=== PATIENT | male | born 1970 | race Caucasian/White ===

== ENCOUNTER 2021-04-25 07:40 | Emergency (ER) | payer SELFPAY ==
--- NOTE | 2021-04-25 08:31 | EDM.PDOC ---
ED HPI GENERAL MEDICAL PROBLEM - General Chief Complaint: General Stated Complaint: FREQUENT URINATION/MUSCLE CRAMPS Time Seen by Provider: 04/25/21 08:17 Source of Information: Reports: Patient, RN Notes Reviewed History Limitations: Reports: No Limitations - History of Present Illness INITIAL COMMENTS - FREE TEXT/NARRATIVE: Presents with increasing urination and frequency. He is a truck body repairer over the road and over the last 2 weeks he is lost about almost 30 pounds. He started to have some vision changes blurry vision. He has some increasing thirst although he drinks a lot of water anyway. No burning pain or blood in the urine. No testicle pain no groin pain no abdominal pain. Appetite seems to be stable no nausea vomiting or diarrhea bowels are normal. Denies fevers chills or sweats occasional coughing does smoke cigarettes no sore throat no loss of taste or smell no chest pain shortness of breath or breathing difficulty no abdominal pain associated with it he might have occasional cramps though in his lower abdomen. He does note cramps in his muscles of the legs bilaterally and some in his muscles in general. He does describes self as fairly healthy his last DOT physical the only thing that showed up was a trace of protein does not wear glasses or contacts. Onset: Gradual Duration: Week(s): Improves with: Reports: None - Related Data Allergies Allergy/AdvReac Type Severity Reaction Status Date / Time No Known Allergies Allergy Verified 04/25/21 11:15 Home Meds: Home Meds Lancets/Blood Glucose Strips [Fora [id number] Strp-Lnct] 1 each BIDAC #1 combo..pkg 04/25/21 [Rx] metFORMIN HCl [Metformin HCl] 500 mg PO BID #60 solution 04/25/21 [Rx] Past Medical History - Past Health History Medical/Surgical History: Denies Medical/Surgical History Social & Family History - Tobacco Use Tobacco Use Status *Q: Never Tobacco User ED ROS GENERAL - Review of Systems Review Of Systems: See Below Constitutional: Reports: Weight Loss. Denies: Fever, Chills, Decreased Appetite HEENT: Reports: Rhinitis, Vision Change. Denies: Contact Lenses Respiratory: Reports: Cough. Denies: Shortness of Breath, Sputum Cardiovascular: Denies: Chest Pain, Dyspnea on Exertion, Lightheadedness, Palpitations GI/Abdominal: Denies: Abdominal Pain, Constipation, Diarrhea, Decreased Appetite, Nausea, Vomiting : Reports: Frequency. Denies: Dysuria, Flank Pain, Incontinence, Urgency, Urinary Retention Musculoskeletal: Reports: Muscle Pain, Muscle Stiffness Skin: Reports: No Symptoms Neurological: Reports: No Symptoms Psychiatric: Reports: No Symptoms ED EXAM, GENERAL - Physical Exam Exam: See Below Exam Limited By: No Limitations General Appearance: Alert, WD/WN, No Apparent Distress Throat/Mouth: Normal Inspection, Normal Oropharynx Head: Atraumatic Neck: Supple Respiratory/Chest: No Respiratory Distress, Lungs Clear Cardiovascular: Normal Peripheral Pulses, Regular Rate, Rhythm, No Edema, No JVD, No Murmur GI/Abdominal: Normal Bowel Sounds, Soft, Non-Tender, No Organomegaly, Distended. No: Abnormal Bowel Sounds Extremities: Normal Inspection, Normal Range of Motion, No Pedal Edema Neurological: Alert, Oriented Psychiatric: Normal Affect, Normal Mood Skin Exam: Warm Course - Vital Signs Text/Narrative:: Patient presents with increased frequency with urination crampy muscles, vision changes worry for hyperglycemia/rule out new onset diabetes, seems less likely infectious although will screen for Covid as he is Covid negative for vaccine. He does travel across the country. Not otherwise having any headaches or other infectious-like symptoms such as fevers chills or sweats. No real abdominal pain he has had weight loss associated with this. We will just do a general care work-up to look for any metabolic etiology of some of his symptoms especially hyperglycemia. Last Recorded V/S: Last Vital Signs Temp 98.5 F 04/25/21 08:06 Pulse 78 04/25/21 08:06 Resp 18 04/25/21 08:06 BP 167/105 H 04/25/21 08:06 Pulse Ox 98 04/25/21 08:06 - Orders/Labs/Meds Labs: Laboratory Tests 04/25/21 04/25/21 04/25/21 Range/Units 08:20 09:57 09:57 WBC 9.94 H (4.23-9.07) K/mm3 RBC 5.11 (4.63-6.08) M/mm3 Hgb 15.6 (13.7-17.5) gm/dl Hct 43.4 (40.1-51.0) % MCV 84.9 (79.0-92.2) fl MCH 30.5 (25.7-32.2) pg MCHC 35.9 H (32.2-35.5) g/dl RDW Std Deviation 38.9 (35.1-43.9) fL Plt Count 257 (163-337) K/mm3 MPV 10.6 (9.4-12.3) fl Neut % (Auto) 66.1 (34.0-67.9) % Lymph % (Auto) 25.8 (21.8-53.1) % [place] % (Auto) 6.7 (5.3-12.2) % Eos % (Auto) 0.8 (0.8-7.0) Baso % (Auto) 0.4 (0.1-1.2) % Neut # (Auto) 6.57 H (1.78-5.38) K/mm3 Lymph # (Auto) 2.56 (1.32-3.57) K/mm3 [place] # (Auto) 0.67 (0.30-0.82) K/mm3 Eos # (Auto) 0.08 (0.04-0.54) K/mm3 Baso # (Auto) 0.04 (0.01-0.08) K/mm3 Sodium 130 L (136-145) mEq/L Potassium 4.5 (3.5-5.1) mEq/L Chloride 95 L (98-107) mEq/L Carbon Dioxide 25 (21-32) mEq/L Anion Gap 14.5 (5-15) BUN 17 (7-18) mg/dL Creatinine 1.2 (0.7-1.3) mg/dL Est Cr Clr Drug Dosing TNP Estimated GFR (MDRD) > 60 (>60) mL/min BUN/Creatinine Ratio 14.2 (14-18) Glucose 434 H* (70-99) mg/dL POC Glucose (70-99) mg/dL Calcium 8.7 (8.5-10.1) mg/dL Total Bilirubin 0.4 (0.2-1.0) mg/dL AST 24 (15-37) U/L ALT 39 (16-63) U/L Alkaline Phosphatase 97 (46-116) U/L Total Protein 7.0 (6.4-8.2) g/dl Albumin 3.6 (3.4-5.0) g/dl Globulin 3.4 gm/dL Albumin/Globulin Ratio 1.1 (1-2) TSH 3rd Generation 1.351 (0.358-3.74) uIU/mL Urine Color Light yellow (Yellow) Urine Appearance Clear (Clear) Urine pH 6.0 (5.0-8.0) Ur Specific [place] 1.015 (1.005-1.030) Urine Protein Negative (Negative) Urine Glucose (UA) 2+ H (Negative) Urine Ketones Negative (Negative) Urine Occult Blood Trace-intact H (Negative) Urine Nitrite Negative (Negative) Urine Bilirubin Negative (Negative) Urine Urobilinogen 0.2 (0.2-1.0) Ur Leukocyte Esterase Negative (Negative) Urine RBC 0-5 (0-5) /hpf Urine WBC 0-5 (0-5) /hpf Ur Epithelial Cells 0-5 (0-5) /hpf Urine Bacteria Not seen (FEW) /hpf Urine Mucus Not seen (FEW) /hpf SARS-CoV-2 RNA (MICHA) (NEGATIVE) 04/25/21 04/25/21 Range/Units 11:00 12:47 WBC (4.23-9.07) K/mm3 RBC (4.63-6.08) M/mm3 Hgb (13.7-17.5) gm/dl Hct (40.1-51.0) % MCV (79.0-92.2) fl MCH (25.7-32.2) pg MCHC (32.2-35.5) g/dl RDW Std Deviation (35.1-43.9) fL Plt Count (163-337) K/mm3 MPV (9.4-12.3) fl Neut % (Auto) (34.0-67.9) % Lymph % (Auto) (21.8-53.1) % [place] % (Auto) (5.3-12.2) % Eos % (Auto) (0.8-7.0) Baso % (Auto) (0.1-1.2) % Neut # (Auto) (1.78-5.38) K/mm3 Lymph # (Auto) (1.32-3.57) K/mm3 [place] # (Auto) (0.30-0.82) K/mm3 Eos # (Auto) (0.04-0.54) K/mm3 Baso # (Auto) (0.01-0.08) K/mm3 Sodium (136-145) mEq/L Potassium (3.5-5.1) mEq/L Chloride (98-107) mEq/L Carbon Dioxide (21-32) mEq/L Anion Gap (5-15) BUN (7-18) mg/dL Creatinine (0.7-1.3) mg/dL Est Cr Clr Drug Dosing Estimated GFR (MDRD) (>60) mL/min BUN/Creatinine Ratio (14-18) Glucose (70-99) mg/dL POC Glucose 297 H (70-99) mg/dL Calcium (8.5-10.1) mg/dL Total Bilirubin (0.2-1.0) mg/dL AST (15-37) U/L ALT (16-63) U/L Alkaline Phosphatase (46-116) U/L Total Protein (6.4-8.2) g/dl Albumin (3.4-5.0) g/dl Globulin gm/dL Albumin/Globulin Ratio (1-2) TSH 3rd Generation (0.358-3.74) uIU/mL Urine Color (Yellow) Urine Appearance (Clear) Urine pH (5.0-8.0) Ur Specific [place] (1.005-1.030) Urine Protein (Negative) Urine Glucose (UA) (Negative) Urine Ketones (Negative) Urine Occult Blood (Negative) Urine Nitrite (Negative) Urine Bilirubin (Negative) Urine Urobilinogen (0.2-1.0) Ur Leukocyte Esterase (Negative) Urine RBC (0-5) /hpf Urine WBC (0-5) /hpf Ur Epithelial Cells (0-5) /hpf Urine Bacteria (FEW) /hpf Urine Mucus (FEW) /hpf SARS-CoV-2 RNA (MICHA) Negative (NEGATIVE) White count 9900 hemoglobin 15.64 hematocrit 43.4 platelet count 257 130 potassium 4.5 chloride 95 CO2 is 25 BUN is 17 creatinine 1.2 blood sugar 434 LFTs are normal TSH is normal and does show 2+ glucose negative proteins. Meds: Medications Discontinued Medications Generic Name Dose Route Start Last Admin Trade Name Freq PRN Reason Stop Dose Admin Sodium Chloride 1,000 mls @ 999 mls/hr 04/25/21 10:46 04/25/21 11:13 Normal Saline IV 04/25/21 11:46 999 mls/hr ONETIME ONE Administration Insulin Glargine 5 unit 04/25/21 11:15 04/25/21 11:16 Insulin Glarg,Human.Rec.Analog 100 Unit/Ml SUBCUT 04/25/21 11:16 Not Given ONETIME ONE - Re-Assessments/Exams Free Text/Narrative Re-Assessment/Exam: 04/25/21 12:49 Patient is feeling much better his recheck blood sugar is 297. We will send patient home with Metformin 500 mg twice a day, follow-up with primary care physician, ration based on suspected diabetic new onset type II. Drink plenty of water and fluids. The test is negative Departure - Departure Time of Disposition: 12:55 Disposition: Home, Self-Care 01 Condition: Good Clinical Impression: Hyperglycemia, unspecified Clinical Impression: (Ruled Out): Hyperglycemia due to type 2 diabetes mellitus, HHNC (hyperglycemic hyperosmolar nonketotic coma), Other specified diabetes mellitus with hyperosmolarity without nonketotic hyperglycemic-hyperosmolar coma ([facility]) - Discharge Information Prescriptions: Lancets/Blood Glucose Strips [Fora [id number] Strp-Lnct] 1 each MC BIDAC #1 combo..pkg metFORMIN HCl [Metformin HCl] 500 mg PO BID #60 solution Instructions: Hyperglycemia, [id number] Referrals: PCP,Not In Area [Primary Care Provider] - Forms: ED Department Discharge Additional Instructions: Your Covid test is negative. You do have early onset of what looks like probable diabetes we will need to make sure to take the Metformin 500 mg twice a day and follow-up with your primary care physician when you are back in [place]. You may need further testing including a hemoglobin A1c and reevaluation of your electrolytes. Need to return to the emergency room with any increasing vision problems, headaches, fevers, nausea or vomiting and unable keep down fluids. I would recommend you get a glucometer and monitor blood sugars regularly and record. Sepsis Event Note (ED) - Evaluation Sepsis Screening Result: No Definite Risk - Focused Exam Vital Signs: Vital Signs Temp Pulse Resp BP Pulse Ox 04/25/21 08:06 98.5 F 78 18 167/105 H 98
[2021-04-25] MEDS ORDERED: Sodium Chloride 0.9% 1,000 ML IV ONE (10:46)
[2021-04-25] MEDS ORDERED: Insulin Glarg,Human.Rec.Analog 100 Unit/ML SUBCUT ONE (11:15)
[2021-04-25] MEDS ORDERED: Insulin Glarg,Human.Rec.Analog 100 Unit/ML SUBCUT SCH (16:00)
== END 2021-04-25 13:52 | disposition home or self-care (01) ==
LOC: JD.ED 07:40
DX: E11.65 Type 2 diabetes mellitus with hyperglycemia (principal); Z79.84 Long term (current) use of oral hypoglycemic drugs; Z20.822 Contact with and (suspected) exposure to COVID-19
CPT/HCPCS: 36415; 80053; 81001; 82947; 84443; 85025; 87635; 99284; J1815; J7030; U0002